=== PATIENT | male | born 1980 | race Caucasian/White ===

== ENCOUNTER 2019-04-09 10:13 | Emergency (ER) | payer OTHER ==
[~2019-04-09] VITALS: Ht 188 cm; Wt 100.0 kg
[2019-04-09 10:17] VITALS: BP 128/71; Ht 188 cm; Wt 100.0 kg
== END 2019-04-09 10:51 | disposition left against medical advice (07) ==
LOC: D.ER 10:13
DX: N50.812 Left testicular pain (principal); Z53.29 Procedure and treatment not carried out because of patient's decision for other reasons